=== PATIENT | male | born 1985 | race Caucasian/White ===

== ENCOUNTER 2017-09-17 11:30 | Inpatient (IN) | payer OTHER ==
[~2017-09-17] VITALS: Ht 170.2 cm; Wt 75.0 kg
[2017-09-17] MEDS ORDERED: SODIUM CHLORIDE 0.9% 1000ML 1,000 ML IV STA ×2 (12:01→14:46)
[2017-09-17] MEDS ORDERED: HYDR-3983 PO (12:20)
[2017-09-17] MEDS ORDERED: IBUP-1451 PO (12:20)
[2017-09-17] MEDS ORDERED: CHLO0.1222 PO (12:20)
[2017-09-17 13:07] LABS: BASO % 0.1 %; BASO ABS # 0.02 K/uL (0-0.2); COMPLETE YES; EOS % 0.3 %; HEMATOCRIT 47.3 % (42-52); IG% 0.4 %; LYMPH % 8.6 %; LYMPH ABS # 1.72 K/uL (1.2-3.4); MEAN CELL VOLUME 87.1 fL (80-100); MEAN CORPUSCULAR HEMOGLOBIN 29.7 pg (25-34); MEAN PLATELET VOLUME 10.3 fL (7.4-10.4); MONO % 4.5 %; NEUT % 86.1 %; PLATELET COUNT 298 K/uL (130-400); RED BLOOD COUNT 5.43 M/uL (4.7-6.1); WHITE BLOOD COUNT 19.93 K/uL (4.8-10.8)
--- NOTE | 2017-09-17 13:17 | DIAGNOSTIC IMAGING REPORT ---
CHEST AND ABDOMEN 2 VIEWS HISTORY: severe abdominal pain/constipation COMPARISON: None. FINDINGS: The lungs are clear. The cardiomediastinal silhouette is within normal limits. There is no pneumoperitoneum or pneumatosis. The bowel gas pattern is unremarkable. No evidence for bowel obstruction. No pathologic calcifications. Small to moderate amount of well-formed stool seen within the colon. IMPRESSION: No acute cardiopulmonary process. No evidence for bowel obstruction. Small to moderate amount of well-formed stool seen within the colon. Electronically signed by: Kevan Gomes M.D. 09/17/2017 1:16 PM Dictated Date/Time: 09/17/2017 1:14 PM
[2017-09-17] MEDS ORDERED: HYDROmorphone INJ 0.5 MG/0.5 ML SYR IV STA ×2 (13:21→14:05)
[2017-09-17] MEDS ORDERED: ONDANSETRON INJ 2 MG/ML 2 ML VIAL IV STA (13:21)
[2017-09-17 13:25] LABS: MANUAL MICROSCOPIC REQUIRED? NO; REVIEW REQ? NO; URINE APPEARANCE CLEAR (CLEAR); URINE BILIRUBIN NEG (NEG); URINE COLOR DK YELLOW; URINE EPITHELIAL CELL AUTO >30 /lpf (0-5); URINE NITRITE NEG (NEG); URINE PH 5.5 (4.5-7.5); URINE SPECIFIC GRAVITY 1.032 (1.000-1.030); UROBILINOGEN NEG (NEG); ZZUR CULT IF INDIC CLEAN CATCH NO
[2017-09-17 13:27] LABS: ALT/SGPT 25 U/L (12-78); BLOOD UREA NITROGEN 13 mg/dl (7-18); BUN/CREATININE RATIO 13.3 (10-20); CALCIUM 9.1 mg/dl (8.5-10.1); CARBON DIOXIDE 29 mmol/L (21-32); CHLORIDE 102 mmol/L (98-107); CREATININE 1.01 mg/dl (0.60-1.40); GLUCOSE 194 mg/dl (70-99); POTASSIUM 4.1 mmol/L (3.5-5.1); SODIUM 138 mmol/L (136-145)
[2017-09-17] MEDS ORDERED: OPTIRAY 320 IV PRN (13:30)
[2017-09-17 13:33] LABS: ALKALINE PHOSPHATASE 103 U/L (45-117); AST/SGOT 22 U/L (15-37)
[2017-09-17] MEDS ORDERED: PIPERACILLIN/TAZOBACTAM 4.5 GM/100ML D5W IV STA (14:29)
--- NOTE | 2017-09-17 14:32 | DIAGNOSTIC IMAGING REPORT ---
ABDOMEN AND PELVIS CT WITH IV CONTRAST CT DOSE: 587.56 mGy.cm HISTORY: severe upper abd pain, 19K wbc TECHNIQUE: Multiaxial CT images of the abdomen and pelvis were performed following the use of intravenous contrast. A dose lowering technique was utilized adhering to the principles of ALARA. COMPARISON STUDY: Abdominal series 09/17/2017. FINDINGS: The lung bases are clear. Small amount of pneumoperitoneum. Bilateral L5 spondylolysis with associated grade I anterolisthesis. No fractures within the visualized osseous structures. The liver, gallbladder, pancreas, spleen, adrenal glands, and kidneys are unremarkable. No retroperitoneal lymphadenopathy. Normal bladder. Small amount of ascites. A few colonic diverticula. The majority of the loops of small bowel and large bowel are mildly thickened. Normal appendix. The exact site of bowel perforation is not clear identified. There is a small focal outpouching within the superior border of the gastric antrum best seen on image 155. Therefore, this raises the possibility of a perforated gastric ulcer. IMPRESSION: 1. There is evidence for pneumoperitoneum and a small amount of ascites. These findings are highly suggestive of bowel perforation. However, the exact site of perforation is not clearly identified. There is a small focal outpouching along the superior border of the gastric antrum which raises the possibility of a perforated gastric ulcer. 2. The majority of the small and large bowel are mildly thickened. This may be due to the peritonitis or could represent an enterocolitis. 3. These findings were discussed with Dr. Bates at 2:30 PM on 09/17/2017. Electronically signed by: Kevan Gomes M.D. 09/17/2017 2:31 PM Dictated Date/Time: 09/17/2017 2:20 PM
[2017-09-17] MEDS: HYDROmorphone INJ 0.5 MG/0.5 ML SYR IV PRN ×2 (14:58→15:21)
--- NOTE | 2017-09-17 15:24 | EMERGENCY ROOM VISIT NOTE ---
ED Visit Note First contact with patient: 11:54 The patient was seen and examined with Comfort Duff PA-C. I agree with the history, physical and findings. Please see the note for disposition and details. The patient had significant abdominal pain. He had peritoneal findings on examination. Obstruction series did not reveal any abnormal findings. His blood work showed a white blood cell count of 19,000. I did order pain medication and a CT scan. This was performed. The patient has a perforated viscus, likely a gastric ulcer. He was need surgical consultation. Zosyn was ordered. I did consult with Dr. Gillis of general surgery. She will evaluate the patient in the emergency department for intervention. 09/17/17 12:45 Red Blood Count 5.43, Mean Corpuscular Volume 87.1, Mean Corpuscular Hemoglobin 29.7, Mean Corpuscular Hemoglobin Concent 34.0, Mean Platelet Volume 10.3, Neutrophils (%) (Auto) 86.1, Lymphocytes (%) (Auto) 8.6, Monocytes (%) (Auto) 4.5, Eosinophils (%) (Auto) 0.3, Basophils (%) (Auto) 0.1, Neutrophils # (Auto) 17.17, Lymphocytes # (Auto) 1.72, Monocytes # (Auto) 0.90, Eosinophils # (Auto) 0.05, Basophils # (Auto) 0.02 09/17/17 12:45 Test 09/17/17 12:01 09/17/17 12:45 09/17/17 12:48 Creatine Kinase MB Ratio (0-3.0) White Blood Count 19.93 K/uL (4.8-10.8) Red Blood Count 5.43 M/uL (4.7-6.1) Hemoglobin 16.1 g/dL (14.0-18.0) Hematocrit 47.3 % (42-52) Mean Corpuscular Volume 87.1 fL (80-100) Mean Corpuscular Hemoglobin 29.7 pg (25-34) Mean Corpuscular Hemoglobin Concent 34.0 g/dl (32-36) Platelet Count 298 K/uL (130-400) Mean Platelet Volume 10.3 fL (7.4-10.4) Neutrophils (%) (Auto) 86.1 % Lymphocytes (%) (Auto) 8.6 % Monocytes (%) (Auto) 4.5 % Eosinophils (%) (Auto) 0.3 % Basophils (%) (Auto) 0.1 % Neutrophils # (Auto) 17.17 K/uL (1.4-6.5) Lymphocytes # (Auto) 1.72 K/uL (1.2-3.4) Monocytes # (Auto) 0.90 K/uL (0.11-0.59) Eosinophils # (Auto) 0.05 K/uL (0-0.5) Basophils # (Auto) 0.02 K/uL (0-0.2) RDW Standard Deviation 45.5 fL (36.4-46.3) RDW Coefficient of Variation 14.4 % (11.5-14.5) Immature Granulocyte % (Auto) 0.4 % Immature Granulocyte # (Auto) 0.07 K/uL (0.00-0.02) Anion Gap 7.0 mmol/L (3-11) Est Creatinine Clear Calc Drug Dose 96.4 ml/min Estimated GFR () 112.0 Estimated GFR (Non- 96.6 BUN/Creatinine Ratio 13.3 (10-20) Calcium Level 9.1 mg/dl (8.5-10.1) Total Bilirubin 0.2 mg/dl (0.2-1) Aspartate Amino Transf (AST/SGOT) 22 U/L (15-37) Alanine Aminotransferase (ALT/SGPT) 25 U/L (12-78) Alkaline Phosphatase 103 U/L (45-117) Creatine Kinase MB 2.5 ng/ml (0.5-3.6) Troponin I < 0.015 ng/ml (0-0.045) Total Protein 7.5 gm/dl (6.4-8.2) Albumin 3.8 gm/dl (3.4-5.0) Globulin 3.7 gm/dl (2.5-4.0) Albumin/Globulin Ratio 1.0 (0.9-2) Lipase 783 U/L (73-393) Urine Color DK YELLOW Urine Appearance CLEAR (CLEAR) Urine pH 5.5 (4.5-7.5) Urine Specific [place] 1.032 (1.000-1.030) Urine Protein TRACE (NEG) Urine Glucose (UA) NEG (NEG) Urine Ketones TRACE (NEG) Urine Occult Blood NEG (NEG) Urine Nitrite NEG (NEG) Urine Bilirubin NEG (NEG) Urine Urobilinogen NEG (NEG) Urine Leukocyte Esterase NEG (NEG) Urine WBC (Auto) 1-5 /hpf (0-5) Urine RBC (Auto) 0-4 /hpf (0-4) Urine Hyaline Casts (Auto) 5-10 /lpf (0-5) Urine Epithelial Cells (Auto) >30 /lpf (0-5) Urine Bacteria (Auto) NEG (NEG) GENERAL: Awake, alert, very uncomfortable appearing, diaphoretic, in moderate distress HENT: Normocephalic, atraumatic. Oropharynx unremarkable. EYES: Normal conjunctiva. Sclera non-icteric. NECK: Supple. No nuchal rigidity. FROM. No JVD. RESPIRATORY: Clear to auscultation. CARDIAC: Tachycardic rate, normal rhythm. Extremities warm and well perfused. Pulses equal. ABDOMEN: Soft, mildly-distended. Significant upper tenderness to palpation. Rebound and guarding present. No masses. RECTAL: Deferred. MUSCULOSKELETAL: Chest examination reveals no tenderness. The back is symmetrical on inspection without obvious abnormality. There is no CVA tenderness to palpation. No joint edema. LOWER EXTREMITIES: Calves are equal size bilaterally and non-tender. No edema. No discoloration. NEURO: Normal sensorium. No sensory or motor deficits noted. SKIN: No rash or jaundice noted. Vital Signs Past 12 Hours Date Time Temp Pulse Resp B/P (MAP) Pulse Ox O2 Delivery O2 Flow Rate FiO2 09/17/17 15:10 93 09/17/17 14:59 90 25 164/93 98 Room Air 09/17/17 14:15 95 20 170/100 99 Room Air 09/17/17 13:30 87 20 160/97 Room Air 09/17/17 11:33 91 18 142/85 98 Room Air I have personally spent greater than 30 minutes of critical care time in the direct management of this patient. This includes bedside care, interpretation of diagnostic studies, and testing, discussion with consultants, patient, and family members, and other required patient management activities. This 30 minutes is in excess of all separately billable procedures.
--- NOTE | 2017-09-17 15:29 | History and Physical ---
History & Physical Date & Time of Service: Sep 17, 2017 at 15:23 Chief Complaint: Severe Abdominal Pain Primary Care Physician: No Doctor, Assigned History of Present Illness Source: patient 32 yr old man who presents to the ER with severe abdominal pain which started around 9 am. Girlfriend reports he had a dental surgery on 09/12/17; prior had been taking high amounts of motrin for pain. After he came out of the bathroom this morning, doubled over in pain. Had sweats but no fever. Pain is 10/10, worse with movement/ deep breaths, no relieving factors, associated with dry heaves earlier. No similar episodes in the past. Past Medical/Surgical History Medical Problems: (1) Chronic alcohol abuse Status: Chronic tobacco use PSHx: dental procedure 09/12/17 Family History diabetes, hypertension, heart disease in family Social History Smoking Status: Current Every Day Smoker Marital Status: in relationship Occupational Status: employed Allergies Coded Allergies: No Known Allergies (Unverified , 09/17/17) Home Medications Scheduled Chlorhexidine Gluconate (Mouth (Peridex), 15 ML PO BID Scheduled PRN Hydrocodone/Acetaminophen 7.5MG/325MG ([place] 7.5MG/325MG), 1 TAB PO Q6 PRN for Pain Ibuprofen Tab (Motrin), 800 MG PO Q8H PRN for Pain Review of Systems Constitutional: + chills, + sweats Eyes: No problem reported ENT: No problem reported Respiratory: No problem reported Cardiovascular: No problem reported Abdomen: + pain Musculoskeletal: No problem reported Genitourinary - Male: No problem reported Neurologic: No problem reported Psychiatric: No problem reported Hematologic / Lymphatic: No problem reported Integumentary: No problem reported Allergic / Immunologic: No problem reported Physical Exam Vital Signs Date Time Temp Pulse Resp B/P (MAP) Pulse Ox O2 Delivery O2 Flow Rate FiO2 09/17/17 15:10 93 09/17/17 14:59 90 25 164/93 98 Room Air 09/17/17 14:15 95 20 170/100 99 Room Air 09/17/17 13:30 87 20 160/97 Room Air 09/17/17 11:33 91 18 142/85 98 Room Air General Appearance: WD/WN, + moderate distress Head: normocephalic, atraumatic Eyes: normal inspection ENT: normal ENT inspection, hearing grossly normal Neck: supple, trachea midline Respiratory/Chest: lungs clear, normal breath sounds, + pertinent finding ( increased resp rate, short/ shallow breaths) Cardiovascular: regular rate, rhythm, no murmur Abdomen/GI: + tenderness, + abnormal bowel sounds (hypoactive), + guarding ( diffusely) Back: normal inspection Extremities/Musculoskelatal: no calf tenderness, no pedal edema Neurologic/Psych: valet attendant II-XII nml as tested, alert, oriented x 3 Skin: normal color, warm/dry Diagnostics Laboratory Results Results Past 24 Hours Test 09/17/17 12:01 09/17/17 12:45 09/17/17 12:48 Range/Units Creatine Kinase MB Ratio 0-3.0 White Blood Count 19.93 4.8-10.8 K/uL Red Blood Count 5.43 4.7-6.1 M/uL Hemoglobin 16.1 14.0-18.0 g/dL Hematocrit 47.3 42-52 % Mean Corpuscular Volume 87.1 80-100 fL Mean Corpuscular Hemoglobin 29.7 25-34 pg Mean Corpuscular Hemoglobin Concent 34.0 32-36 g/dl Platelet Count 298 130-400 K/uL Mean Platelet Volume 10.3 7.4-10.4 fL Neutrophils (%) (Auto) 86.1 % Lymphocytes (%) (Auto) 8.6 % Monocytes (%) (Auto) 4.5 % Eosinophils (%) (Auto) 0.3 % Basophils (%) (Auto) 0.1 % Neutrophils # (Auto) 17.17 1.4-6.5 K/uL Lymphocytes # (Auto) 1.72 1.2-3.4 K/uL Monocytes # (Auto) 0.90 0.11-0.59 K/uL Eosinophils # (Auto) 0.05 0-0.5 K/uL Basophils # (Auto) 0.02 0-0.2 K/uL RDW Standard Deviation 45.5 36.4-46.3 fL RDW Coefficient of Variation 14.4 11.5-14.5 % Immature Granulocyte % (Auto) 0.4 % Immature Granulocyte # (Auto) 0.07 0.00-0.02 K/uL Sodium Level 138 136-145 mmol/L Potassium Level 4.1 3.5-5.1 mmol/L Chloride Level 102 98-107 mmol/L Carbon Dioxide Level 29 21-32 mmol/L Anion Gap 7.0 3-11 mmol/L Blood Urea Nitrogen 13 7-18 mg/dl Creatinine 1.01 0.60-1.40 mg/dl Est Creatinine Clear Calc Drug Dose 96.4 ml/min Estimated GFR () 112.0 Estimated GFR (Non- 96.6 BUN/Creatinine Ratio 13.3 10-20 Random Glucose 194 70-99 mg/dl Calcium Level 9.1 8.5-10.1 mg/dl Total Bilirubin 0.2 0.2-1 mg/dl Aspartate Amino Transf (AST/SGOT) 22 15-37 U/L Alanine Aminotransferase (ALT/SGPT) 25 12-78 U/L Alkaline Phosphatase 103 45-117 U/L Creatine Kinase MB 2.5 0.5-3.6 ng/ml Troponin I < 0.015 0-0.045 ng/ml Total Protein 7.5 6.4-8.2 gm/dl Albumin 3.8 3.4-5.0 gm/dl Globulin 3.7 2.5-4.0 gm/dl Albumin/Globulin Ratio 1.0 0.9-2 Lipase 783 73-393 U/L Urine Color DK YELLOW Urine Appearance CLEAR CLEAR Urine pH 5.5 4.5-7.5 Urine Specific [place] 1.032 1.000-1.030 Urine Protein TRACE NEG Urine Glucose (UA) NEG NEG Urine Ketones TRACE NEG Urine Occult Blood NEG NEG Urine Nitrite NEG NEG Urine Bilirubin NEG NEG Urine Urobilinogen NEG NEG Urine Leukocyte Esterase NEG NEG Urine WBC (Auto) 1-5 0-5 /hpf Urine RBC (Auto) 0-4 0-4 /hpf Urine Hyaline Casts (Auto) 5-10 0-5 /lpf Urine Epithelial Cells (Auto) >30 0-5 /lpf Urine Bacteria (Auto) NEG NEG Diagnostic Radiology CT scan shows evidence of bowel perforation, unclear source, ? gastric antrum. Impression Assessment and Plan 32 yr old man with free air from bowel perforation - most likely scenario is perforated peptic ulcer although diverticular perf or small bowel perf are still considerations. Explained need for exploratory laparotomy with repair/ resection of perforated area. Potential for bowel resection or ostomy discussed. Expected hospital stay of 5-7 days and 6-8 wk recovery reviewed. Discussed need for antacid medications postoperatively. Risks of bleeding, infection, abscess, hernia, adhesions all reviewed. He consents to procedure but preferred to have girlfriend sign consent form for him. Given IV abx, will resuscitate with IVF, plan OR urgently.
[2017-09-17] MEDS ORDERED: BUPIVACAINE 0.5 % 5 MG/1 ML MPF 30ML VIAL ONE (15:40)
[2017-09-17] MEDS ORDERED: FENTANYL CITRATE INJ 50 MCG/1 ML 2 ML VIAL ONE (15:48)
[2017-09-17] MEDS ORDERED: MIDAZOLAM HCL 1 MG/ML 2ML VIAL ONE (15:48)
[2017-09-17] MEDS ORDERED: HYDROmorphone INJ 2 MG/ML SYR/VIAL ONE (16:13)
--- NOTE | 2017-09-17 16:15 | EMERGENCY ROOM VISIT NOTE ---
History First contact with patient: 11:54 Chief Complaint: ABDOMINAL PAIN Stated Complaint: SEVERE ABDOMINAL PAIN Nursing Triage Summary: triage note: pt to triage via wheelchair. pt forehead and hair wet. pt girlfriend reports that pt developed generalized abd pain this am "and the sweat just poured off of him, we were on the way here and it went away but then it came back he hasn't been in the rain." pt reports abd pain "is all over my abd." girlfriend reports that pt had teeth out last week and was started on motrin and hydrocodone. girlfriend reports pt was dry heaving earlier today. History of Present Illness The patient is a 32 year old male who presents to the Emergency Room with his with complaints of severe abdominal pain which began approximately 2 hours ago. The patient recently had dental surgery and had several teeth removed. He was given Motrin and hydrocodone to take after the surgery. Initially, he was taking the pain medication pretty consistently, however now is taking hydrocodone at least twice daily. He states he took the medication this morning , then approximately 2 hours later began experiencing severe pain. When the pain began, the patient thought he had to go to the bathroom, as he was feeling constipated. When he came out of the bathroom, his abdomen was rigid, and his states "you could see every muscle in his abdomen." The patient has not had a bowel movement today, but his bowel movements over the past few days have been normal. He does feel like he needs to have a bowel movement. He states leaning over to help slightly, but the pain feels knifelike. He rates the pain 10/10, and states it is severe through his abdomen, and below his heart. Prior to his dental procedure, the patient had been taking excessive amounts ibuprofen consistently for several days. The patient denies any fever, but is sweating and in pain, he is unable to get comfortable, and states he has severe nausea and chills. The patient denies any diarrhea, and he states he has not had significant abdominal pain until today. He denies any congestion, chest pain, difficulty breathing, dizziness, confusion, or other concerning symptoms. Review of Systems A complete 10 point review of systems was reviewed with the patient with pertinent positives and negatives as per history of present illness. All else were negative. Past Medical/Surgical History Medical Problems: (1) Chronic alcohol abuse Social History Smoking Status: Current Every Day Smoker Alcohol Use: heavy Marital Status: in relationship Housing Status: lives with significant other Occupation Status: employed Current/Historical Medications Scheduled Chlorhexidine Gluconate (Mouth (Peridex), 15 ML PO BID Scheduled PRN Hydrocodone/Acetaminophen 7.5MG/325MG ([place] 7.5MG/325MG), 1 TAB PO Q6 PRN for Pain Ibuprofen Tab (Motrin), 800 MG PO Q8H PRN for Pain Allergies None Physical Exam Vital Signs Date Time Temp Pulse Resp B/P (MAP) Pulse Ox O2 Delivery O2 Flow Rate FiO2 09/17/17 15:21 94 23 161/93 93 Room Air 09/17/17 15:10 93 09/17/17 14:59 90 25 164/93 98 Room Air 09/17/17 14:15 95 20 170/100 99 Room Air 09/17/17 13:30 87 20 160/97 Room Air 09/17/17 11:33 91 18 142/85 98 Room Air Physical Exam Due to the patient's severe discomfort, he would not allow me to examine him. He was unable to tolerate lying flat or sitting in one position on the bed. Even after several rounds of pain medication, he declines. The patient did allow Dr. Bates to perform a limited examination. Please see his dictation. Medical Decision & Procedures ER Provider Diagnostic Interpretation: LABS: CBC showed leukocytosis of greater than 19,000. CBC was without anemia or thrombocytopenia. CMP was without significant abnormalities, except random glucose was 194. Lipase was 783. CK-MB and troponin were normal. Urinalysis did show trace ketones, protein, and hyaline cast. RADIOLOGY: Abdomen/Chest X-Ray: CHEST AND ABDOMEN 2 VIEWS HISTORY: severe abdominal pain/constipation COMPARISON: None. FINDINGS: The lungs are clear. The cardiomediastinal silhouette is within normal limits. There is no pneumoperitoneum or pneumatosis. The bowel gas pattern is unremarkable. No evidence for bowel obstruction. No pathologic calcifications. Small to moderate amount of well-formed stool seen within the colon. IMPRESSION: No acute cardiopulmonary process. No evidence for bowel obstruction. Small to moderate amount of well-formed stool seen within the colon. Electronically signed by: Kevan Gomes M.D. 09/17/2017 1:16 PM Dictated Date/Time: 09/17/2017 1:[address] Abdomen/Pelvis: ABDOMEN AND PELVIS CT WITH IV CONTRAST CT DOSE: 587.56 mGy.cm HISTORY: severe upper abd pain, 19K wbc TECHNIQUE: Multiaxial CT images of the abdomen and pelvis were performed following the use of intravenous contrast. A dose lowering technique was utilized adhering to the principles of ALARA. COMPARISON STUDY: Abdominal series 09/17/2017. FINDINGS: The lung bases are clear. Small amount of pneumoperitoneum. Bilateral L5 spondylolysis with associated grade I anterolisthesis. No fractures within the visualized osseous structures. The liver, gallbladder, pancreas, spleen, adrenal glands, and kidneys are unremarkable. No retroperitoneal lymphadenopathy. Normal bladder. Small amount of ascites. A few colonic diverticula. The majority of the loops of small bowel and large bowel are mildly thickened. Normal appendix. The exact site of bowel perforation is not clear identified. There is a small focal outpouching within the superior border of the gastric antrum best seen on image 155. Therefore, this raises the possibility of a perforated gastric ulcer. IMPRESSION: 1. There is evidence for pneumoperitoneum and a small amount of ascites. These findings are highly suggestive of bowel perforation. However, the exact site of perforation is not clearly identified. There is a small focal outpouching along the superior border of the gastric antrum which raises the possibility of a perforated gastric ulcer. 2. The majority of the small and large bowel are mildly thickened. This may be due to the peritonitis or could represent an enterocolitis. 3. These findings were discussed with Dr. Bates at 2:30 PM on 09/17/2017. Electronically signed by: Kevan Gomes M.D. 09/17/2017 2:31 PM Dictated Date/Time: 09/17/2017 2:20 PM Laboratory Results 09/17/17 12:45 Red Blood Count 5.43, Mean Corpuscular Volume 87.1, Mean Corpuscular Hemoglobin 29.7, Mean Corpuscular Hemoglobin Concent 34.0, Mean Platelet Volume 10.3, Neutrophils (%) (Auto) 86.1, Lymphocytes (%) (Auto) 8.6, Monocytes (%) (Auto) 4.5, Eosinophils (%) (Auto) 0.3, Basophils (%) (Auto) 0.1, Neutrophils # (Auto) 17.17, Lymphocytes # (Auto) 1.72, Monocytes # (Auto) 0.90, Eosinophils # (Auto) 0.05, Basophils # (Auto) 0.02 09/17/17 12:45 Test 09/17/17 12:01 09/17/17 12:45 09/17/17 12:48 Creatine Kinase MB Ratio (0-3.0) White Blood Count 19.93 K/uL (4.8-10.8) Red Blood Count 5.43 M/uL (4.7-6.1) Hemoglobin 16.1 g/dL (14.0-18.0) Hematocrit 47.3 % (42-52) Mean Corpuscular Volume 87.1 fL (80-100) Mean Corpuscular Hemoglobin 29.7 pg (25-34) Mean Corpuscular Hemoglobin Concent 34.0 g/dl (32-36) Platelet Count 298 K/uL (130-400) Mean Platelet Volume 10.3 fL (7.4-10.4) Neutrophils (%) (Auto) 86.1 % Lymphocytes (%) (Auto) 8.6 % Monocytes (%) (Auto) 4.5 % Eosinophils (%) (Auto) 0.3 % Basophils (%) (Auto) 0.1 % Neutrophils # (Auto) 17.17 K/uL (1.4-6.5) Lymphocytes # (Auto) 1.72 K/uL (1.2-3.4) Monocytes # (Auto) 0.90 K/uL (0.11-0.59) Eosinophils # (Auto) 0.05 K/uL (0-0.5) Basophils # (Auto) 0.02 K/uL (0-0.2) RDW Standard Deviation 45.5 fL (36.4-46.3) RDW Coefficient of Variation 14.4 % (11.5-14.5) Immature Granulocyte % (Auto) 0.4 % Immature Granulocyte # (Auto) 0.07 K/uL (0.00-0.02) Anion Gap 7.0 mmol/L (3-11) Est Creatinine Clear Calc Drug Dose 96.4 ml/min Estimated GFR () 112.0 Estimated GFR (Non- 96.6 BUN/Creatinine Ratio 13.3 (10-20) Calcium Level 9.1 mg/dl (8.5-10.1) Total Bilirubin 0.2 mg/dl (0.2-1) Aspartate Amino Transf (AST/SGOT) 22 U/L (15-37) Alanine Aminotransferase (ALT/SGPT) 25 U/L (12-78) Alkaline Phosphatase 103 U/L (45-117) Creatine Kinase MB 2.5 ng/ml (0.5-3.6) Troponin I < 0.015 ng/ml (0-0.045) Total Protein 7.5 gm/dl (6.4-8.2) Albumin 3.8 gm/dl (3.4-5.0) Globulin 3.7 gm/dl (2.5-4.0) Albumin/Globulin Ratio 1.0 (0.9-2) Lipase 783 U/L (73-393) Urine Color DK YELLOW Urine Appearance CLEAR (CLEAR) Urine pH 5.5 (4.5-7.5) Urine Specific [place] 1.032 (1.000-1.030) Urine Protein TRACE (NEG) Urine Glucose (UA) NEG (NEG) Urine Ketones TRACE (NEG) Urine Occult Blood NEG (NEG) Urine Nitrite NEG (NEG) Urine Bilirubin NEG (NEG) Urine Urobilinogen NEG (NEG) Urine Leukocyte Esterase NEG (NEG) Urine WBC (Auto) 1-5 /hpf (0-5) Urine RBC (Auto) 0-4 /hpf (0-4) Urine Hyaline Casts (Auto) 5-10 /lpf (0-5) Urine Epithelial Cells (Auto) >30 /lpf (0-5) Urine Bacteria (Auto) NEG (NEG) Medications Administered Medications (Trade) Dose Ordered Sig/Nova Route Start Time Stop Time Status Last Admin Dose Admin Sodium Chloride 1,000 ml @ 999 mls/hr Q1H1M STAT IV 09/17/17 12:01 09/17/17 13:01 DC 09/17/17 12:01 999 MLS/HR Hydromorphone HCl (Dilaudid Inj) 0.5 mg NOW STAT IV 09/17/17 13:21 09/17/17 13:23 DC 09/17/17 13:36 0.5 MG Ondansetron HCl (Zofran Inj) 4 mg NOW STAT IV 09/17/17 13:21 09/17/17 13:23 DC 09/17/17 13:36 4 MG Hydromorphone HCl (Dilaudid Inj) 0.5 mg NOW STAT IV 09/17/17 14:05 09/17/17 14:06 DC 09/17/17 14:05 0.5 MG Piperacillin Sod/ Tazobactam Sod (Zosyn Iv) 4.5 gm NOW STAT IV 09/17/17 14:29 09/17/17 14:31 DC 09/17/17 14:37 4.5 GM Sodium Chloride 1,000 ml @ 999 mls/hr Q1H1M STAT IV 09/17/17 14:46 09/17/17 15:46 DC 09/17/17 14:46 999 MLS/HR Hydromorphone HCl (Dilaudid Inj) 0.5 mg Q15M PRN IV 09/17/17 15:00 10/01/17 14:59 09/17/17 15:21 0.5 MG ECG Indication: abdominal pain Rate (beats per minute): 88 Rhythm: normal sinus Findings: no acute ischemic change Comparison ECG Date: no prior available Medical Decision The patient presented today with significant abdominal pain associated with nausea and constipation like sensation. His pain is intermittent in nature, but very severe when it occurs. The patient's stated she would like a cardiac workup performed, as the patient was complaining of left shoulder pain as well as abdominal pain. The patient's initially stated she did not want me involved in his care due to a misunderstanding, however, after speaking with them again, they did allow me to participate. At that time, Dr. Bates did get involved and did direct care. The patient has been taking significant amounts of ibuprofen and narcotic pain medication. His symptoms and history do mimic opioid induced constipation, so an initial Abdominal X-Ray was ordered, which did show hard stool in the colon, but no other significant abnormalities. [place] [address] and lipase was almost 800. A CT scan with IV contrast was ordered by Dr. Bates as well as IV pain medication. CT scan did show significant free fluid and air in the abdomen with suspicions for gastric ulcer perforation. Dr. Bates at this time reviewed the CT scan and discussed the findings with the patient at bedside. He consulted with the general surgeon. Please see his dictation for further details regarding the case. The patient was seen by Dr. Gillis and was taken to the OR immediately for further management. Differential diagnosis includes: Opioid induced constipation, acute appendicitis , acute pancreatitis, diverticulitis, abscess, gastric ulcer, perforation, bowel obstruction, malignancy, cardiac etiology, and others. Medication Reconcilliation Current Medication List: was personally reviewed by me Blood Pressure Screening Patient's blood pressure: Elevated blood pressure Blood pressure disposition: Elevated BP felt to be situational Impression Primary Impression: Perforated bowel Additional Impression: Peritonitis Departure Information Dispostion Admitted as an inpatient Condition FAIR Referrals No Doctor, Assigned (PCP) Cris Gillis MD Patient Instructions My [facility] Problem Qualifiers
[2017-09-17] MEDS ORDERED: ROCURONIUM BROMIDE 10 MG/ML 5 ML VIAL IV ONE (16:19)
[2017-09-17] MEDS ORDERED: DEXAMETHASONE SOD INJ 4 MG/ML VIAL ONE (16:19)
[2017-09-17] MEDS ORDERED: ONDANSETRON INJ 2 MG/ML 2 ML VIAL ONE (16:19)
[2017-09-17] MEDS ORDERED: PROPOFOL IV EMULSION 10 MG/ML 20 ML VIAL IV ONE (16:19)
[2017-09-17] MEDS ORDERED: LIDOCAINE HCL 2% 2 ML VIAL (20MG/ML) ONE (16:19)
[2017-09-17] MEDS ORDERED: ONDANSETRON INJ 2 MG/ML 2 ML VIAL IV PRN ×2 (16:45→17:45)
[2017-09-17] MEDS ORDERED: HYDROmorphone INJ 2 MG/ML SYR/VIAL IV PRN (16:45)
[2017-09-17] MEDS ORDERED: PHENYLEPHRINE 100MCG/ML 5ML SYR IV PRN (16:45)
[2017-09-17] MEDS ORDERED: ATROPINE SULFATE 0.1 MG/ML 5ML SYR IV PRN (16:45)
[2017-09-17] MEDS ORDERED: EpHEDrine SULFATE INJ 50 MG/ML AMP IV PRN (16:45)
[2017-09-17] MEDS ORDERED: GLYCOPYRROLATE INJ 0.2 MG/ML VIAL ONE (17:04)
[2017-09-17] MEDS ORDERED: NEOSTIGMINE METHYLSULFATE 5 MG/5 ML SYR ONE (17:04)
[2017-09-17] MEDS ORDERED: MoRPHine SULFATE 2 MG/ML CARP IV STA (17:36)
--- NOTE | 2017-09-17 17:36 | [facility] Post Operative Brief Note ---
Immediate Operative Summary Operative Date Sep 17, 2017. Pre-Operative Diagnosis free air from bowel perforation Post-Operative Diagnosis perforated prepyloric ulcer Procedure(s) Performed Exploratory Laparotomy, Reid patch repair of Perforated Prepyloric Ulcer Surgeon Dr. Cris Gillis Needle Molder Surgeon(s) none Estimated Blood Loss 5mL Findings anterior superior 1cm perforation prepyloric. Fluids (cc crystalloids) 1900 cc Specimens Microbiology: 1. Peritoneal Fluid for gram stain, culture and sensitivity, anaerobic and aerobic. Drains none Anesthesia GET Complication(s) None Disposition Recovery Room / PACU
[2017-09-17] MEDS ORDERED: ACETAMINOPHEN 325 MG TAB PO PRN (17:45)
[2017-09-17] MEDS ORDERED: OXYCODONE/ACETAMINOPHEN 5-325 TAB PO PRN (17:45)
[2017-09-17] MEDS ORDERED: NALOXONE HCL 0.4 MG/1 ML VIAL/CARP IV PRN (17:45)
--- NOTE | 2017-09-17 17:51 | Anesthesiology Progress Note ---
Anesthesia Post Op Note Date & Time Sep 17, 2017 at 17:51 Vital Signs Pain Intensity: 8.0 Vital Signs Past 12 Hours Date Time Temp Pulse Resp B/P (MAP) Pulse Ox O2 Delivery O2 Flow Rate FiO2 09/17/17 15:21 94 23 161/93 93 Room Air 09/17/17 15:10 93 09/17/17 14:59 90 25 164/93 98 Room Air 09/17/17 14:15 95 20 170/100 99 Room Air 09/17/17 13:30 87 20 160/97 Room Air 09/17/17 11:33 91 18 142/85 98 Room Air Notes Mental Status: alert / awake / arousable, participated in evaluation Pt Amnestic to Procedure: Yes Nausea / Vomiting: adequately controlled Pain: adequately controlled Airway Patency, RR, SpO2: stable & adequate BP & HR: stable & adequate Hydration State: stable & adequate Anesthetic Complications: no major complications apparent
[2017-09-17] MEDS: MoRPHine SULFATE 1 MG/ML 50 ML PCA CASS IV PRN ×3 (18:58→22:50)
--- NOTE | 2017-09-17 19:00 | OPERATIVE REPORT ---
DATE OF OPERATION: 09/17/2017 PREOPERATIVE DIAGNOSIS: Pneumoperitoneum with perforated viscus. POSTOPERATIVE DIAGNOSIS: Perforated prepyloric ulcer. OPERATIVE PROCEDURES: Exploratory laparotomy, Reid patch repair of perforated prepyloric ulcer. ANESTHESIA: General endotracheal anesthesia. SURGEON: Cris Gillis MD. ESTIMATED BLOOD LOSS: 5 mL. INTRAVENOUS FLUIDS: 1900 mL. URINE OUTPUT: 700 mL. DRAINS: None. COMPLICATIONS: None. SPECIMENS: Peritoneal fluid culture. INDICATIONS: Mr. Gaines is a 32-year-old man, who was on high doses of Motrin for dental pain, who presented with acute onset of abdominal pain. CT scan was concerning for perforated viscus. He was consented regarding exploratory laparotomy. DESCRIPTION OF PROCEDURE: The patient was on Zosyn preoperatively. After the induction of general endotracheal anesthesia and placed in sequential compression devices, he had placement of Rankin catheter. His abdomen was clipped and then sterilely prepped and draped. A supraumbilical midline incision was made from the xiphoid to the umbilicus. This was carried down to the fascia. The abdomen was sharply entered. Initial inspection revealed cloudy ascites. This was cultured. There was evidence of fibrinous exudate around the area of the stomach. This was followed in the prepyloric region under the liver. An anterior 1 cm freely perforated ulcer was noted. There was contamination of gastric contents in this area. The ulcer was located just before the pylorus. Decision was made to do a Reid patch repair. The omentum was brought up and laid in the region of the ulcer freely without any mobilization. The omentum was then tacked over the ulcer with interrupted 3-0 silk stitches. This provided a repair, where no further leakage was noted. The abdomen was irrigated multiple times with over 2 L of warm saline until the effluent in all quadrants and pelvis was clear. The NG tube was positioned in the stomach. The fascia was then closed after the sponge and needle counts were correct. This was closed with 2 running 0 Prolene stitches, which met in the middle. Interrupted 3-0 Vicryls were used to reapproximate the subcutaneous tissue and the skin was closed with meet. About 30 mL of 0.5% Marcaine was injected for local anesthesia. Sterile dressing was applied. He was awakened and taken to recovery in stable condition. I attest to the content of the Intraoperative Record and any orders documented therein. Any exception s are noted below.
[2017-09-17 19:30] VITALS: BP 139/87; PULSE 81; TEMP 36.6; O2SAT 100
[2017-09-17] MEDS ORDERED: PIPERACILL/TAZOBAC CONSULT ACTIVE PRN (19:45)
[2017-09-17 20:02] VITALS: BP 138/81; PULSE 91; TEMP 36.8; O2SAT 100
[2017-09-17 20:30] VITALS: BP 143/80; PULSE 100; TEMP 37.6; O2SAT 100
[2017-09-17 20:40] VITALS: Ht 170.2 cm; Wt 75.0 kg
[2017-09-17 21:29] VITALS: BP 137/57; PULSE 107; TEMP 36.9; O2SAT 99
[2017-09-17] MEDS: PIPERACILL/TAZOBAC IV 3.375 GM in DEXTROSE 5% 100ML 100 ML IV SCH (21:43)
[2017-09-17] MEDS: SODIUM CHLORIDE 0.9% 1000ML 1,000 ML IV SCH (21:43)
[2017-09-17] MEDS: PANTOprazole INJ 40 MG in SYRINGE 0 ML IV SCH (21:44)
[2017-09-17] MEDS: CHLORHEXIDINE GLUCONATE 0.12% 15 ML UDP MT SCH (21:44)
[2017-09-17] MEDS: LACTATED RINGER'S 1000ML 1,000 ML IV SCH (21:55)
[2017-09-17 22:31] VITALS: BP 123/61; PULSE 108; TEMP 37.5; O2SAT 98
[2017-09-17 23:10] VITALS: BP 133/63; PULSE 109; TEMP 36.7; O2SAT 96
[2017-09-18] MEDS: LACTATED RINGER'S 1000ML 1,000 ML IV SCH ×3 (02:25→16:56)
[2017-09-18 03:03] VITALS: BP 120/54; PULSE 96; TEMP 37.2; O2SAT 98
[2017-09-18] MEDS: MoRPHine SULFATE 1 MG/ML 50 ML PCA CASS IV PRN ×5 (03:34→23:05)
[2017-09-18] MEDS: PIPERACILL/TAZOBAC IV 3.375 GM in DEXTROSE 5% 100ML 100 ML IV SCH ×2 (03:46→12:05)
[2017-09-18 07:07] VITALS: BP 116/58; PULSE 91; TEMP 37; O2SAT 98
[2017-09-18 07:30] VITALS: O2SAT 94
[2017-09-18] MEDS ORDERED: NURSING VERBAL MED ORDER ONE (08:15)
[2017-09-18] MEDS: NICOTINE 21 MG/24 HR TDSY TD SCH (09:01)
[2017-09-18] MEDS: CHLORHEXIDINE GLUCONATE 0.12% 15 ML UDP MT SCH ×2 (09:01→20:40)
[2017-09-18] MEDS: PANTOprazole INJ 40 MG in SYRINGE 0 ML IV SCH ×2 (09:11→20:40)
--- NOTE | 2017-09-18 09:52 | Surgery Progress Note ---
Surgery Progress Note Date of Service Sep 18, 2017. Subjective Sitting on commode - girlfriend is helping him clean up. Used a lot of morphine (over 30mg) since surgery. Not complaining of pain at present. No nausea. Catheter was removed this am and he has been able to void since removal. No flatus/ bowel movement. Objective Vital Signs: Date Time Temp Pulse Resp B/P (MAP) Pulse Ox O2 Delivery O2 Flow Rate FiO2 09/18/17 07:30 94 Room Air 09/18/17 07:07 37.0 91 18 116/58 (77) 98 Room Air 09/18/17 03:03 37.2 96 17 120/54 (76) 98 Nasal Cannula 2.0 09/17/17 23:45 Nasal Cannula 2.0 09/17/17 23:10 36.7 109 16 133/63 (86) 96 Nasal Cannula 2.0 09/17/17 22:31 37.5 108 18 123/61 (81) 98 Nasal Cannula 4.0 09/17/17 21:29 36.9 107 17 137/57 (83) 99 Room Air 09/17/17 20:30 37.6 100 17 143/80 (101) 100 Room Air 09/17/17 20:02 36.8 91 17 138/81 (100) 100 Room Air 09/17/17 19:30 Nasal Cannula 09/17/17 19:30 36.6 81 18 139/87 (104) 100 Nasal Cannula 4.0 09/17/17 19:30 Nasal Cannula 09/17/17 19:05 36.8 83 16 134/78 100 Nasal Cannula 4 Oxymask 09/17/17 18:55 36.8 75 16 142/80 100 Nasal Cannula 4 Oxymask 09/17/17 18:45 36.8 75 16 143/86 100 Nasal Cannula 4 Oxymask 09/17/17 18:35 36.8 88 16 144/86 100 Nasal Cannula 4 Oxymask 09/17/17 18:25 88 16 144/86 100 Nasal Cannula 4 Oxymask 09/17/17 18:15 81 16 142/82 100 Nasal Cannula 4 Oxymask 09/17/17 18:05 81 16 145/79 100 Oxymask 10 09/17/17 17:55 77 16 148/81 100 Oxymask 10 09/17/17 17:45 36.5 96 16 143/85 100 Oxymask 10 09/17/17 15:21 94 23 161/93 93 Room Air 09/17/17 15:10 93 09/17/17 14:59 90 25 164/93 98 Room Air 09/17/17 14:15 95 20 170/100 99 Room Air 09/17/17 13:30 87 20 160/97 Room Air 09/17/17 11:33 91 18 142/85 98 Room Air Physical Exam: nasogastric drainage (35 cc) General Appearance: WD/WN, no apparent distress Head: normocephalic, atraumatic Respiratory/Chest: lungs clear, normal breath sounds, no respiratory distress Cardiovascular: no murmur, + tachycardia Abdomen: non distended, soft, + abnormal bowel sounds (hypoactive), + tenderness (appropriate) Incision(s): clean (dressing is dry), dry, intact Laboratory Results: Results Past 24 Hours Test 09/17/17 12:01 09/17/17 12:45 09/17/17 12:48 Range/Units Creatine Kinase MB Ratio 0-3.0 White Blood Count 19.93 4.8-10.8 K/uL Red Blood Count 5.43 4.7-6.1 M/uL Hemoglobin 16.1 14.0-18.0 g/dL Hematocrit 47.3 42-52 % Mean Corpuscular Volume 87.1 80-100 fL Mean Corpuscular Hemoglobin 29.7 25-34 pg Mean Corpuscular Hemoglobin Concent 34.0 32-36 g/dl Platelet Count 298 130-400 K/uL Mean Platelet Volume 10.3 7.4-10.4 fL Neutrophils (%) (Auto) 86.1 % Lymphocytes (%) (Auto) 8.6 % Monocytes (%) (Auto) 4.5 % Eosinophils (%) (Auto) 0.3 % Basophils (%) (Auto) 0.1 % Neutrophils # (Auto) 17.17 1.4-6.5 K/uL Lymphocytes # (Auto) 1.72 1.2-3.4 K/uL Monocytes # (Auto) 0.90 0.11-0.59 K/uL Eosinophils # (Auto) 0.05 0-0.5 K/uL Basophils # (Auto) 0.02 0-0.2 K/uL RDW Standard Deviation 45.5 36.4-46.3 fL RDW Coefficient of Variation 14.4 11.5-14.5 % Immature Granulocyte % (Auto) 0.4 % Immature Granulocyte # (Auto) 0.07 0.00-0.02 K/uL Sodium Level 138 136-145 mmol/L Potassium Level 4.1 3.5-5.1 mmol/L Chloride Level 102 98-107 mmol/L Carbon Dioxide Level 29 21-32 mmol/L Anion Gap 7.0 3-11 mmol/L Blood Urea Nitrogen 13 7-18 mg/dl Creatinine 1.01 0.60-1.40 mg/dl Est Creatinine Clear Calc Drug Dose 96.4 ml/min Estimated GFR () 112.0 Estimated GFR (Non- 96.6 BUN/Creatinine Ratio 13.3 10-20 Random Glucose 194 70-99 mg/dl Calcium Level 9.1 8.5-10.1 mg/dl Total Bilirubin 0.2 0.2-1 mg/dl Aspartate Amino Transf (AST/SGOT) 22 15-37 U/L Alanine Aminotransferase (ALT/SGPT) 25 12-78 U/L Alkaline Phosphatase 103 45-117 U/L Creatine Kinase MB 2.5 0.5-3.6 ng/ml Troponin I < 0.015 0-0.045 ng/ml Total Protein 7.5 6.4-8.2 gm/dl Albumin 3.8 3.4-5.0 gm/dl Globulin 3.7 2.5-4.0 gm/dl Albumin/Globulin Ratio 1.0 0.9-2 Lipase 783 73-393 U/L Urine Color DK YELLOW Urine Appearance CLEAR CLEAR Urine pH 5.5 4.5-7.5 Urine Specific [place] 1.032 1.000-1.030 Urine Protein TRACE NEG Urine Glucose (UA) NEG NEG Urine Ketones TRACE NEG Urine Occult Blood NEG NEG Urine Nitrite NEG NEG Urine Bilirubin NEG NEG Urine Urobilinogen NEG NEG Urine Leukocyte Esterase NEG NEG Urine WBC (Auto) 1-5 0-5 /hpf Urine RBC (Auto) 0-4 0-4 /hpf Urine Hyaline Casts (Auto) 5-10 0-5 /lpf Urine Epithelial Cells (Auto) >30 0-5 /lpf Urine Bacteria (Auto) NEG NEG Microbiology Results 09/17/17 Gram Stain - Final, Resulted 09/17/17 Bacterial Culture, Resulted Pending Assessment & Plan 32 yr old man s/p mercy patch repair of perforated prepyloric ulcer likely related to excessive motrin usage. POD#1. Evidence of peritonitis at time of surgery with contamination of bowel extending into pelvis by gastric contents ( no food). Explained he is likely to have an ileus and that excessive use of morphine will prolong the time of ileus resolution. Will d/c continuous morphine in his manager transfusion. Unable to use toradol due to ulcer. Increase activity - girlfriend is going to walk him today. Keep on IV abx for total 7-10 day course (switch to PO on discharge). On IV protonix (will need to convert to PO on discharge) BID. Keep NG tube in until Tuesday at least and then removal based on presence / absence of ileus.
[2017-09-18 15:36] VITALS: BP 132/75; PULSE 100; TEMP 36.8; O2SAT 96
[2017-09-18] MEDS: SODIUM CHLORIDE 0.9% 1000ML 1,000 ML IV SCH (16:58)
[2017-09-18 18:53] VITALS: BP 132/72; PULSE 100; TEMP 36.8; O2SAT 96
[2017-09-18 22:55] VITALS: BP 147/70; PULSE 101; TEMP 36.9; O2SAT 92
[2017-09-19] VITALS (8 sets, daily range): BP systolic 145–156; BP diastolic 78–86; PULSE 86–105; TEMP 36.6–37.1; O2SAT 90–97
[2017-09-19] MEDS: LACTATED RINGER'S 1000ML 1,000 ML IV SCH ×2 (00:38→09:02)
[2017-09-19] MEDS: MoRPHine SULFATE 1 MG/ML 50 ML PCA CASS IV PRN ×4 (03:40→23:05)
[2017-09-19 06:35] LABS: HEMATOCRIT 35.6 % (42-52); MEAN CELL VOLUME 86.6 fL (80-100); MEAN CORPUSCULAR HEMOGLOBIN 29.2 pg (25-34); MEAN CORPUSCULAR HGB CONC 33.7 g/dl (32-36); MEAN PLATELET VOLUME 10.3 fL (7.4-10.4); PLATELET COUNT 206 K/uL (130-400); RED BLOOD COUNT 4.11 M/uL (4.7-6.1); WHITE BLOOD COUNT 9.67 K/uL (4.8-10.8)
[2017-09-19 07:05] LABS: BUN/CREATININE RATIO 14.5 (10-20); CALCIUM 8.5 mg/dl (8.5-10.1); CREATININE 0.85 mg/dl (0.60-1.40); POTASSIUM 3.7 mmol/L (3.5-5.1)
[2017-09-19] MEDS: NICOTINE 21 MG/24 HR TDSY TD SCH (09:03)
[2017-09-19] MEDS: CHLORHEXIDINE GLUCONATE 0.12% 15 ML UDP MT SCH ×2 (09:03→20:45)
[2017-09-19] MEDS: PANTOprazole INJ 40 MG in SYRINGE 0 ML IV SCH ×2 (09:03→20:45)
--- NOTE | 2017-09-19 10:01 | Surgery Progress Note ---
Surgery Progress Note Date of Service Sep 19, 2017. Subjective Post OP Day: 2 (s/p ex lap with repair of prepyloric ulcer with Grahm patch) + feeling well, + ambulating, + pain controlled, No chest pain, No SOB, No bowel movement, No flatus, No nausea, No vomiting Objective Vital Signs: Date Time Temp Pulse Resp B/P (MAP) Pulse Ox O2 Delivery O2 Flow Rate FiO2 09/19/17 07:37 90 Room Air 09/19/17 07:35 36.9 100 20 152/78 (102) 90 Room Air 09/19/17 07:35 Room Air 09/19/17 03:04 37.1 105 18 145/81 (102) 91 Room Air 09/18/17 23:50 Room Air 09/18/17 22:55 36.9 101 16 147/70 (95) 92 Room Air 09/18/17 18:53 36.8 100 17 132/72 (92) 96 Room Air 09/18/17 15:36 36.8 100 17 132/75 (94) 96 Room Air 09/18/17 15:30 Room Air General Appearance: WD/WN, no apparent distress Head: normocephalic, atraumatic Neck: trachea midline Respiratory/Chest: normal breath sounds, no respiratory distress, no accessory muscle use Cardiovascular: regular rate, rhythm, no murmur Abdomen: non distended, soft, + tenderness (appropriate post op but minimal) Incision(s): clean, dry, intact, no erythema, no drainage, findings (meet present and intact) Laboratory Results: Results Past 24 Hours Test 09/19/17 05:58 Range/Units White Blood Count 9.67 4.8-10.8 K/uL Red Blood Count 4.11 4.7-6.1 M/uL Hemoglobin 12.0 14.0-18.0 g/dL Hematocrit 35.6 42-52 % Mean Corpuscular Volume 86.6 80-100 fL Mean Corpuscular Hemoglobin 29.2 25-34 pg Mean Corpuscular Hemoglobin Concent 33.7 32-36 g/dl RDW Standard Deviation 45.6 36.4-46.3 fL RDW Coefficient of Variation 14.4 11.5-14.5 % Platelet Count 206 130-400 K/uL Mean Platelet Volume 10.3 7.4-10.4 fL Sodium Level 139 136-145 mmol/L Potassium Level 3.7 3.5-5.1 mmol/L Chloride Level 105 98-107 mmol/L Carbon Dioxide Level 26 21-32 mmol/L Anion Gap 8.0 3-11 mmol/L Blood Urea Nitrogen 12 7-18 mg/dl Creatinine 0.85 0.60-1.40 mg/dl Est Creatinine Clear Calc Drug Dose 114.5 ml/min Estimated GFR () 131.8 Estimated GFR (Non- 113.7 BUN/Creatinine Ratio 14.5 10-20 Random Glucose 82 70-99 mg/dl Calcium Level 8.5 8.5-10.1 mg/dl Assessment & Plan POD # 2 s/p ex lap with repair of prepyloric ulcer and Reid patch -vitals stable, afebrile, slightly tachycardic - adequate urine output - NGT- 100 mls of bilious output - H&H stable - no return of bowel function Plan: Continue MARKET DEVELOPMENT EXECUTIVE as needed for pain Continue IV Fluids and IV antibiotics Continue IV Zofran as needed Continue IV Protonix BID Continue NPO, await return of bowel function Continue NGT to LIS Encourage ambulation and OOB to chair Daily dressing changes starting tomorrow, already changed today SCDs Dr. Gillis has seen and examined patient, agrees with above Pt seen and examined. Increased ng output as expected. Still hypoactive bowel tones, minimal distention. Would keep ng in until return of bowel function - postop ileus expected as small bowel had been exposed to gastric contents/ ascites. Leukocytosis resolved - continue antibiotics. Keep on protonix bid. Will drop IVF as urine output is high.
[2017-09-19] MEDS ORDERED: PIPERACILL/TAZOBAC CONSULT ACTIVE PRN (10:30)
[2017-09-19] MEDS ORDERED: PIPERACILL/TAZOBAC IV 3.375 GM in DEXTROSE 5% 100ML IV ONE (10:30)
[2017-09-19] MEDS: D5W AND 1/2NSS + 20MEQ KCL 1,000 ML IV SCH (12:26)
[2017-09-19] MEDS: PIPERACILL/TAZOBAC IV 3.375 GM in DEXTROSE 5% 100ML 100 ML IV SCH ×2 (17:03→23:59)
[2017-09-19] MEDS: SODIUM CHLORIDE 0.9% 1000ML 1,000 ML IV SCH (17:31)
[2017-09-19] MEDS ORDERED: NURSING DECISION MEDICATION ORDER SCH (17:45)
[2017-09-19] MEDS ORDERED: COUGH DROP (SUGAR FREE) LOZ 24 LOZ/1 BOX ONE (17:58)
[2017-09-19] MEDS ORDERED: COUGH DROP (SUGAR FREE) LOZ 24 LOZ/1 BOX PO PRN (18:45)
[2017-09-20] MEDS: MoRPHine SULFATE 1 MG/ML 50 ML PCA CASS IV PRN ×4 (02:03→23:19)
[2017-09-20 03:24] VITALS: BP 134/82; PULSE 80; TEMP 36.7; O2SAT 95
[2017-09-20 07:12] VITALS: BP 151/85; PULSE 80; TEMP 36.7; O2SAT 91
[2017-09-20 07:28] LABS: HEMATOCRIT 35.4 % (42-52); MEAN CELL VOLUME 84.9 fL (80-100); MEAN CORPUSCULAR HGB CONC 34.2 g/dl (32-36); MEAN PLATELET VOLUME 9.9 fL (7.4-10.4); PLATELET COUNT 224 K/uL (130-400); RED BLOOD COUNT 4.17 M/uL (4.7-6.1); WHITE BLOOD COUNT 7.24 K/uL (4.8-10.8)
[2017-09-20 07:57] LABS: BUN/CREATININE RATIO 9.3 (10-20); CALCIUM 8.5 mg/dl (8.5-10.1); CREATININE 0.92 mg/dl (0.60-1.40); POTASSIUM 3.9 mmol/L (3.5-5.1)
[2017-09-20] MEDS: PIPERACILL/TAZOBAC IV 3.375 GM in DEXTROSE 5% 100ML 100 ML IV SCH ×3 (08:15→23:21)
[2017-09-20] MEDS: NICOTINE 21 MG/24 HR TDSY TD SCH (08:23)
[2017-09-20] MEDS: PANTOprazole INJ 40 MG in SYRINGE 0 ML IV SCH ×2 (08:23→20:58)
[2017-09-20] MEDS: CHLORHEXIDINE GLUCONATE 0.12% 15 ML UDP MT SCH ×2 (08:23→20:59)
[2017-09-20] MEDS: D5W AND 1/2NSS + 20MEQ KCL 1,000 ML IV SCH ×3 (11:33→23:30)
[2017-09-20 11:58] VITALS: BP 153/89; PULSE 73; TEMP 36.6; O2SAT 95
--- NOTE | 2017-09-20 14:14 | Surgery Progress Note ---
Surgery Progress Note Date of Service Sep 20, 2017. Subjective Post OP Day: 3 (s/p ex lap, repair of gastric ulcer with mercy patch) + feeling well, + ambulating, + flatus, + pain controlled (with QUALITY SYSTEM MANAGER, improving daily), No chest pain, No SOB, No nausea, No vomiting, No diet Objective Vital Signs: Date Time Temp Pulse Resp B/P (MAP) Pulse Ox O2 Delivery O2 Flow Rate FiO2 09/20/17 11:58 36.6 73 16 153/89 (110) 95 Room Air 09/20/17 07:30 Room Air 09/20/17 07:12 36.7 80 18 151/85 (107) 91 Room Air 09/20/17 03:24 36.7 80 18 134/82 (99) 95 Room Air 09/20/17 00:00 Room Air 09/19/17 23:10 36.6 86 18 156/84 (108) 92 Room Air 09/19/17 19:24 36.6 100 18 152/82 (105) 92 Room Air 09/19/17 16:15 92 Room Air 09/19/17 15:44 36.9 94 18 150/86 (107) 92 Room Air Physical Exam: nasogastric drainage (bilious) General Appearance: WD/WN, no apparent distress Head: normocephalic, atraumatic Respiratory/Chest: no respiratory distress, no accessory muscle use Abdomen: non distended, soft, + tenderness (appropriate post op at incision site and upper abdomen) Incision(s): clean, dry, intact, no erythema, no drainage, findings (meet intact) Laboratory Results: Results Past 24 Hours Test 09/20/17 06:35 Range/Units White Blood Count 7.24 4.8-10.8 K/uL Red Blood Count 4.17 4.7-6.1 M/uL Hemoglobin 12.1 14.0-18.0 g/dL Hematocrit 35.4 42-52 % Mean Corpuscular Volume 84.9 80-100 fL Mean Corpuscular Hemoglobin 29.0 25-34 pg Mean Corpuscular Hemoglobin Concent 34.2 32-36 g/dl RDW Standard Deviation 43.1 36.4-46.3 fL RDW Coefficient of Variation 13.9 11.5-14.5 % Platelet Count 224 130-400 K/uL Mean Platelet Volume 9.9 7.4-10.4 fL Sodium Level 139 136-145 mmol/L Potassium Level 3.9 3.5-5.1 mmol/L Chloride Level 105 98-107 mmol/L Carbon Dioxide Level 25 21-32 mmol/L Anion Gap 8.0 3-11 mmol/L Blood Urea Nitrogen 9 7-18 mg/dl Creatinine 0.92 0.60-1.40 mg/dl Est Creatinine Clear Calc Drug Dose 105.8 ml/min Estimated GFR () 125.3 Estimated GFR (Non- 108.1 BUN/Creatinine Ratio 9.3 10-20 Random Glucose 99 70-99 mg/dl Calcium Level 8.5 8.5-10.1 mg/dl Assessment & Plan POD # 3 s/p ex lap with repair of prepyloric ulcer and Mercy patch - vitals stable, afebrile - adequate urine output - NGT- 350 mls of bilious output - H&H stable - passing flatus Plan: Continue QUALITY SYSTEM MANAGER as needed for pain Continue IV Fluids and IV antibiotics Continue IV Zofran as needed Continue IV Protonix BID Will order UGI study with Gastrografin, if normal may remove NGT and start diet tomorrow as patient is passing flatus Continue NGT to LIS in the meantime Encourage ambulation and OOB to chair Daily dressing changes SCDs Dr. Akbar has seen and examined patient, agrees with above
--- NOTE | 2017-09-20 14:58 | DIAGNOSTIC IMAGING REPORT ---
GI SERIES W/O KUB CLINICAL HISTORY: GASTROGRAFFIN study, r/o leakpostoperative evaluation COMPARISON STUDY: 10 FLUOROSCOPY TIME: 1 minute. FINDINGS: The study is performed with Gastrografin water mixture. There is mild edematous change of the mucosal fold of the stomach R channel and duodenal bulb. This appears to be postoperative. There is no evidence for extravasation. There is no evidence for obstruction. IMPRESSION: No evidence for extravasation or obstruction. Mild mucosal irritability most likely on a postoperative basis The above report was generated using voice recognition software. It may contain grammatical, syntax or spelling errors. Electronically signed by: Nikita Jacob M.D. 09/20/2017 2:57 PM Dictated Date/Time: 09/20/2017 2:48 PM
[2017-09-20 15:25] VITALS: BP 164/93; PULSE 85; TEMP 36.4; O2SAT 93
[2017-09-20] MEDS: SODIUM CHLORIDE 0.9% 1000ML 1,000 ML IV SCH (17:36)
[2017-09-20 23:08] VITALS: BP 143/85; PULSE 82; TEMP 36.9; O2SAT 94
[2017-09-21 03:20] VITALS: BP 134/74; PULSE 70; TEMP 36.7; O2SAT 94
[2017-09-21 06:30] LABS: HEMATOCRIT 35.7 % (42-52); MEAN CELL VOLUME 84.6 fL (80-100); MEAN CORPUSCULAR HEMOGLOBIN 28.9 pg (25-34); MEAN CORPUSCULAR HGB CONC 34.2 g/dl (32-36); MEAN PLATELET VOLUME 9.4 fL (7.4-10.4); PLATELET COUNT 238 K/uL (130-400); RED BLOOD COUNT 4.22 M/uL (4.7-6.1); WHITE BLOOD COUNT 5.77 K/uL (4.8-10.8)
[2017-09-21 07:04] LABS: BUN/CREATININE RATIO 10.3 (10-20); CALCIUM 8.5 mg/dl (8.5-10.1); CREATININE 0.96 mg/dl (0.60-1.40); POTASSIUM 3.7 mmol/L (3.5-5.1)
[2017-09-21] MEDS: MoRPHine SULFATE 1 MG/ML 50 ML PCA CASS IV PRN (07:09)
[2017-09-21 07:55] VITALS: BP 120/70; PULSE 74; TEMP 36.6; O2SAT 94
[2017-09-21 09:00] VITALS: O2SAT 94
[2017-09-21] MEDS: PIPERACILL/TAZOBAC IV 3.375 GM in DEXTROSE 5% 100ML 100 ML IV SCH ×3 (09:06→23:29)
[2017-09-21] MEDS: CHLORHEXIDINE GLUCONATE 0.12% 15 ML UDP MT SCH (09:07)
[2017-09-21] MEDS: PANTOprazole INJ 40 MG in SYRINGE 0 ML IV SCH ×2 (09:07→20:43)
[2017-09-21] MEDS: NICOTINE 21 MG/24 HR TDSY TD SCH (09:08)
[2017-09-21] MEDS ORDERED: LORAZEPAM INJ 1 MG in SYRINGE 0.5 ML IV PRN (10:45)
[2017-09-21] MEDS ORDERED: MoRPHine SULFATE 2 MG/ML CARP IV PRN ×2 (10:45)
[2017-09-21] MEDS ORDERED: MoRPHine SULFATE 4 MG/ML 1 ML CARP\\VIAL IM PRN (10:45)
[2017-09-21] MEDS ORDERED: NURSING VERBAL MED ORDER ONE (11:45)
[2017-09-21] MEDS: D5W AND 1/2NSS + 20MEQ KCL 1,000 ML IV SCH (12:24)
--- NOTE | 2017-09-21 12:54 | Surgery Progress Note ---
Surgery Progress Note Date of Service Sep 21, 2017. Subjective Post OP Day: 4 (s/p ex lap repair of prepyloric gastric ulcer with Reid patch ) + feeling well, + bowel movement, + flatus, + pain controlled, No complaints, No nausea, No vomiting "would like this NGT removed" Objective Vital Signs: Date Time Temp Pulse Resp B/P (MAP) Pulse Ox O2 Delivery O2 Flow Rate FiO2 09/21/17 09:00 94 Room Air 09/21/17 07:55 36.6 74 17 120/70 (87) 94 Room Air 09/21/17 07:40 Room Air 09/21/17 03:20 36.7 70 18 134/74 (94) 94 Room Air 09/20/17 23:15 Room Air 09/20/17 23:08 36.9 82 16 143/85 (104) 94 Room Air 09/20/17 15:30 Room Air 09/20/17 15:25 36.4 85 16 164/93 (116) 93 Room Air Physical Exam: nasogastric drainage (bilious) General Appearance: WD/WN, no apparent distress Head: normocephalic, atraumatic Neck: trachea midline Respiratory/Chest: no respiratory distress, no accessory muscle use Abdomen: non distended, soft, + tenderness (appropriate post op) Incision(s): clean, dry, intact, no erythema, no drainage, findings (meet intact) Laboratory Results: Results Past 24 Hours Test 09/21/17 06:02 Range/Units White Blood Count 5.77 4.8-10.8 K/uL Red Blood Count 4.22 4.7-6.1 M/uL Hemoglobin 12.2 14.0-18.0 g/dL Hematocrit 35.7 42-52 % Mean Corpuscular Volume 84.6 80-100 fL Mean Corpuscular Hemoglobin 28.9 25-34 pg Mean Corpuscular Hemoglobin Concent 34.2 32-36 g/dl RDW Standard Deviation 42.6 36.4-46.3 fL RDW Coefficient of Variation 13.8 11.5-14.5 % Platelet Count 238 130-400 K/uL Mean Platelet Volume 9.4 7.4-10.4 fL Sodium Level 141 136-145 mmol/L Potassium Level 3.7 3.5-5.1 mmol/L Chloride Level 108 98-107 mmol/L Carbon Dioxide Level 24 21-32 mmol/L Anion Gap 9.0 3-11 mmol/L Blood Urea Nitrogen 10 7-18 mg/dl Creatinine 0.96 0.60-1.40 mg/dl Est Creatinine Clear Calc Drug Dose 101.4 ml/min Estimated GFR () 119.0 Estimated GFR (Non- 102.7 BUN/Creatinine Ratio 10.3 10-20 Random Glucose 97 70-99 mg/dl Calcium Level 8.5 8.5-10.1 mg/dl Diagnostic Interpretation: GI SERIES W/O KUB CLINICAL HISTORY: GASTROGRAFFIN study, r/o leakpostoperative evaluation COMPARISON STUDY: 10 FLUOROSCOPY TIME: 1 minute. FINDINGS: The study is performed with Gastrografin water mixture. There is mild edematous change of the mucosal fold of the stomach R channel and duodenal bulb. This appears to be postoperative. There is no evidence for extravasation. There is no evidence for obstruction. IMPRESSION: No evidence for extravasation or obstruction. Mild mucosal irritability most likely on a postoperative basis Assessment & Plan POD # 4 s/p ex lap with repair of prepyloric gastric ulcer with Reid patch -vitals stable - gastrografin study normal no evidence of extravasation - + bowel function - abdominal pain controlled Plan: Will stop Morhpine ACCOUNT SUPPORT MANAGER and start IV Morphine and PO Percocet as needed for pain Avoid any NSAIDs Will give some IV Ativan PRN, question of alcohol intake by nursing staff?? D/C NGT Start clear liquids Continue ambulation daily dressing changes Continue SCDs Continue IV antibiotics until discharge and then will need oral antibiotics on discharge Continue IV Protonix if tolerates well can switch to Oral Protonix Dr. Akbar has seen and examined patient, agrees with above Pt seen and examined. Doing very well. Passing bowel movements, tolerating clear liquids. Abdomen soft. Wants to try and go home tomorrow and this is reasonable. Explained need to advance diet slowly at home. Will plan on d/c tomorrow on protonix, pain meds as needed, imitrex for migraines, antibiotics to complete 7 day course.
[2017-09-21] MEDS ORDERED: PANT1TAB48 PO (13:07)
[2017-09-21] MEDS ORDERED: OXYC-57 PO (13:07)
[2017-09-21 15:00] VITALS: BP 132/83; PULSE 69; TEMP 36.8; O2SAT 96
[2017-09-21] MEDS ORDERED: CIPR-255 PO (15:10)
[2017-09-21] MEDS ORDERED: METR500T PO (15:10)
[2017-09-21] MEDS ORDERED: SUMA25TA12 PO (15:18)
--- NOTE | 2017-09-21 15:26 | Discharge Instructions ---
Discharge Instructions Date of Service Sep 21, 2017. Admission Reason for Admission: Severe Abdominal Pain Discharge Discharge Diagnosis / Problem: Gastric ulcer perforation Discharge Goals Goal(s): Decrease discomfort, Improve function Activity Recommendations Activity Limitations: as noted below No heavy lifting over 10 pounds for 4-6 weeks No strenuous activity until cleared by surgeon No submerging incisions underwater for 2 weeks (no bathing, swimming, or hot tubs) No driving while taking narcotic pain medication or until you are pain free No NSAIDs (Ibuprofen, Aleve, Advil, aspirin, Naprosyn) AVOID spicy foods, alcohol, caffeine, smoking (These all can increase acid production and inflammation in your stomach) Instructions / Follow-Up Instructions / Follow-Up You may shower, gently clean incisions with soap and water You do not need to keep incision covered unless there is draining or the meet are getting caught on clothing Walking and light activity is encouraged to prevent blood clots from forming Follow-up with Dr. Gillis next week for staple removal and follow up, please call office at [phone] to make an appointment Recommend small frequent meals instead of 3 large meals [place] diet (soups, soft foods) for the next week or two and slowly advance as tolerated Current Hospital Diet Patient's current hospital diet: Clear Liquid Diet Discharge Diet Recommended Diet: Regular Diet Procedures Procedures Performed: Exploratory Laparotomy, Reid patch repair of Perforated Prepyloric Ulcer Pending Studies Studies pending at discharge: no Medical Emergencies . Who to Call and When: Medical Emergencies: If at any time you feel your situation is an emergency, please call 911 immediately. . Non-Emergent Contact Non-Emergency issues call your: Primary Care Provider, Surgeon Call Non-Emergent contact if: you have a fever, temperature is above 101, your pain is not controlled, your pain is worsening, your pain is unusual for you, wound has increased drainage, wound has increased redness, wound has increased pain . "Provider Documentation" section prepared by Madelyn Tristan. . VTE Core Measure Inpt VTE Proph given/why not?: SCD's [place] Drug Monitoring Program Search Results: patient reviewed within database, no issues identified
[2017-09-21] MEDS: OXYCODONE/ACETAMINOPHEN 5-325 TAB PO PRN (19:57)
[2017-09-21] MEDS: CHLORHEXIDINE GLUCONATE 0.12% 480 ML MT SCH (20:43)
[2017-09-21 22:51] VITALS: BP 126/80; PULSE 63; TEMP 36.6; O2SAT 96
[2017-09-22] MEDS: OXYCODONE/ACETAMINOPHEN 5-325 TAB PO PRN ×3 (00:11→14:16)
[2017-09-22] MEDS: D5W AND 1/2NSS + 20MEQ KCL 1,000 ML IV SCH (02:28)
[2017-09-22 07:07] VITALS: BP 132/78; PULSE 78; TEMP 36.6; O2SAT 98
[2017-09-22] MEDS: PANTOprazole INJ 40 MG in SYRINGE 0 ML IV SCH (08:38)
[2017-09-22] MEDS: PIPERACILL/TAZOBAC IV 3.375 GM in DEXTROSE 5% 100ML 100 ML IV SCH (08:38)
[2017-09-22] MEDS: CHLORHEXIDINE GLUCONATE 0.12% 480 ML MT SCH (08:40)
[2017-09-22] MEDS: NICOTINE 21 MG/24 HR TDSY TD SCH (08:41)
--- NOTE | 2017-09-22 12:09 | Surgery Progress Note ---
Surgery Progress Note Date of Service Sep 22, 2017. Subjective + feeling well, + bowel movement, + flatus, + diet (tolerated full liquids), No complaints, No nausea, No vomiting Objective Vital Signs: Date Time Temp Pulse Resp B/P (MAP) Pulse Ox O2 Delivery O2 Flow Rate FiO2 09/22/17 07:50 Room Air 09/22/17 07:07 36.6 78 19 132/78 (96) 98 Room Air 09/21/17 23:30 Room Air 09/21/17 22:51 36.6 63 18 126/80 (95) 96 Room Air 09/21/17 15:40 Room Air 09/21/17 15:00 36.8 69 20 132/83 (99) 96 Room Air Abdomen: normal bowel sounds, non tender, non distended Incision(s): clean, dry, intact Assessment & Plan Doing well D/c to home Discussed post op instructions Follow up next week for staple removal
[2017-09-22 13:21] VITALS: BP 132/78; PULSE 78; TEMP 36.6; O2SAT 98
== END 2017-09-22 14:36 | disposition home or self-care (01) | DRG 326 ==
LOC: C.EDB 11:31 → ENRESERV 18:42 → C.MSN 19:34
PROVIDERS: ADMIT Surgery; ATTEND Surgery
PROC: 0DQ70ZZ Repair Stomach, Pylorus, Open Approach (ICD-10-PCS; principal; 2017-09-17 15:45)
DX: K25.5 Chronic or unspecified gastric ulcer with perforation (principal); K65.9 Peritonitis, unspecified; T39.315A Adverse effect of propionic acid derivatives, initial encounter; F10.10 Alcohol abuse, uncomplicated; F17.200 Nicotine dependence, unspecified, uncomplicated; Z83.3 Family history of diabetes mellitus; Z82.49 Family history of ischemic heart disease and other diseases of the circulatory system